=== PATIENT | female | born 1985 | race Caucasian/White ===

== ENCOUNTER 2016-11-04 16:51 | Emergency (ER) | payer OTHER ==
--- NOTE | 2016-11-04 17:18 | EDPHY ---
H & P Stated Complaint: Chest tightness billie w/breathing>1 mo;neg eval [place] was living Time Seen by Provider: 11/04/16 17:17 HPI/ROS: CHIEF COMPLAINT: Intermittent chest pain HISTORY OF PRESENT ILLNESS: The patient presents to the ED with a 1 month history of intermittent chest pain. The patient states she primarily experiences symptoms at night. It is associated with dyspnea and mild pleurisy. Patient reportedly developed the symptoms while traveling in [place]. She reportedly was seen at a hospital and had a unremarkable echocardiogram and EKG. The patient does not believe she had any imaging for chest. The patient denies asymmetric calf pain or swelling. The patient has not yet seen her primary care provider in [place] for evaluation of the symptoms. The patient states that she continues to experience symptoms on a daily basis. She does report resolution of her symptoms during the day. The patient denies prior history of the symptoms. She has no complaints of cough or congestion. REVIEW OF SYSTEMS: A comprehensive 10 point review of systems is otherwise negative aside from elements mentioned in the history of present illness. Source: Patient - Personal History LMP (Females 10-55): 15-21 Days Ago Current Tetanus Diphtheria and Acellular Pertussis (TDAP): Yes - Medical/Surgical History Hx Asthma: No Hx Chronic Respiratory Disease: No Hx Diabetes: No Hx Cardiac Disease: No Hx Renal Disease: No Hx Cirrhosis: No Hx Alcoholism: No Hx HIV/AIDS: No Hx Splenectomy or Spleen Trauma: No Other PMH: Oophorectomy, epilepsy, surgical ASD closure - Social History Smoking Status: Never smoked - Physical Exam Exam: General Appearance: Alert, no distress Eyes: Pupils equal and round no pallor or injection ENT, Mouth: Mucous membranes moist Respiratory: There are no retractions, lungs are clear to auscultation Cardiovascular: Regular rate and rhythm Gastrointestinal: Abdomen is soft and nontender, no masses, bowel sounds normal Neurological: A&O, normal motor function, normal sensory exam, normal cranial nerves Skin: Warm and dry, no rashes Musculoskeletal: Neck is supple nontender Extremities: symmetrical, full range of motion Constitutional: Initial Vital Signs Temperature (C) 36.8 C 11/04/16 16:54 Heart Rate 76 11/04/16 16:54 Respiratory Rate 18 11/04/16 16:54 Blood Pressure 107/74 11/04/16 16:54 O2 Sat (%) 97 11/04/16 16:54 O2 Delivery Mode Room Air Allergies/Adverse Reactions: Sulfa (Sulfonamide Antibiotics) Allergy (Verified 11/04/16 16:52) Rash FLU VACCINE Allergy (Uncoded 05/14/15 15:31) Medical Decision Making - Diagnostics EKG Interpretation: EKG: Complete interpretation has been separately recorded in the [facility] archive. Summary impression: Sinus rhythm Imaging Results: Chest x-ray PA lateral: Images reviewed by myself, negative for pneumothorax, infiltrate or cardiomegaly. Patient does have evidence of an ASD closure device. ED Course/Re-evaluation: The patient presents to the ED with a 1 month history of intermittent chest pain. The patient describes primarily nocturnal symptoms with associated dyspnea. The patient has no complaints of asymmetric calf pain or swelling. The patient's D-dimer is negative which I feel adequately excludes pulmonary embolism in this low risk by Wells criteria patient. The patient is noted to have an unremarkable EKG, test troponin. Patient's vital signs are stable. She does have evidence of ASD closure device on her chest x-ray otherwise no acute findings. Differential Diagnosis: Differential diagnosis considered includes pneumothorax, pulmonary embolism, arrhythmia, myocarditis, pericarditis, pleurisy - Data Points Laboratory Results: Laboratory Results 11/04/16 17:40 11/04/16 17:40 11/04/16 11/04/16 11/04/16 17:40 17:40 17:40 WBC 6.76 10^3/uL 10^3/uL (3.80-9.50) RBC 4.38 10^6/uL 10^6/uL (4.18-5.33) Hgb 13.7 g/dL g/dL (12.6-16.3) Hct 39.3 % % (38.0-47.0) MCV 89.7 fL fL (81.5-99.8) MCH 31.3 pg pg (27.9-34.1) MCHC 34.9 g/dL g/dL (32.4-36.7) RDW 11.7 % % (11.5-15.2) Plt Count 224 10^3/uL 10^3/uL (150-400) MPV 9.7 fL fL (8.7-11.7) Neut % (Auto) 60.1 % % (39.3-74.2) Lymph % (Auto) 31.5 % % (15.0-45.0) [place] % (Auto) 7.0 % % (4.5-13.0) Eos % (Auto) 0.9 % % (0.6-7.6) Baso % (Auto) 0.4 % % (0.3-1.7) Nucleat RBC Rel Count 0.0 % % (0.0-0.2) Absolute Neuts (auto) 4.06 10^3/uL 10^3/uL (1.70-6.50) Absolute Lymphs (auto) 2.13 10^3/uL 10^3/uL (1.00-3.00) Absolute Monos (auto) 0.47 10^3/uL 10^3/uL (0.30-0.80) Absolute Eos (auto) 0.06 10^3/uL 10^3/uL (0.03-0.40) Absolute Basos (auto) 0.03 10^3/uL 10^3/uL (0.02-0.10) Absolute Nucleated RBC 0.00 10^3/uL 10^3/uL (0-0.01) Immature Gran % 0.1 % % (0.0-1.1) Immature Gran # 0.01 10^3/uL 10^3/uL (0.00-0.10) D-Dimer < 0.27 ug/mLFEU ug/mLFEU (0.00-0.50) Sodium 139 mEq/L mEq/L (134-144) Potassium 3.8 mEq/L mEq/L (3.5-5.2) Chloride 102 mEq/L mEq/L (97-110) Carbon Dioxide 24 mEq/l mEq/l (22-31) Anion Gap 13 mEq/L mEq/L (8-16) BUN 6 mg/dL L mg/dL (7-23) Creatinine 0.5 mg/dL L mg/dL (0.6-1.0) Estimated GFR > 60 Glucose 95 mg/dL mg/dL (70-100) Calcium 9.7 mg/dL mg/dL (8.5-10.4) Troponin I < 0.012 ng/mL ng/mL (0.000-0.034) Departure - Departure Disposition: Home, Routine, Self-Care Clinical Impression: Dyspnea, Pleurisy Condition: Good Instructions: Pleurisy (ED) Additional Instructions: 1. Take Ibuprofen or Motrin 600 mg by mouth three times a day. 2. Please schedule a follow-up appointment with your primary care provider for evaluation of any ongoing symptoms. 3. Please return to the ED for markedly worsening symptoms or other concerns. 4. You have also been given the contact number of our on-call pull up hand for additional follow-up for persistent symptoms. Referrals: Sabrina Lin MD [Medical Doctor] - As per Instructions
--- NOTE | 2016-11-04 17:25 | CPEKG ---
Heart Rate: 70 RR Interval: 857 P-R Interval: 140 QRSD Interval: 84 QT Interval: 372 QTC Interval: 402 P Ranger: 48 QRS Ranger: 26 T Wave Ranger: 34 EKG Severity - BORDERLINE ECG - EKG Impression: SINUS RHYTHM Electronically Signed By: Anatoly Sidhu 04-Nov-2016 19:30:12
[2016-11-04 17:54] LABS: % IMMATURE GRANULYOCYTES 0.1 % (0.0-1.1); ABSOLUTE IMMATURE GRANULOCYTES 0.01 10^3/uL (0.00-0.10); ADD DIFF? NO; ADD MORPH? NO; ADD SCAN? NO; ATYPICAL LYMPHOCYTE FLAG 10 (0-99); FRAGMENT RBC FLAG 0 (0-99); HEMATOCRIT 39.3 % (38.0-47.0); HEMOGLOBIN 13.7 g/dL (12.6-16.3); LEFT SHIFT FLG 0 (0-99); LIPEMIA HEMOLYSIS FLAG 90 (0-99); MEAN CELL HEMOGLOBIN 31.3 pg (27.9-34.1); MEAN CELL HEMOGLOBIN CONCENTR. 34.9 g/dL (32.4-36.7); MEAN CELL VOLUME 89.7 fL (81.5-99.8); MEAN PLATELET VOLUME 9.7 fL (8.7-11.7); PLATELET CLUMPS FLAG 20 (0-99); PLATELET COUNT 224 10^3/uL (150-400); RED BLOOD CELL COUNT 4.38 10^6/uL (4.18-5.33); RED CELL DISTRIBUTION WIDTH 11.7 % (11.5-15.2)
[2016-11-04 18:02] LABS: ANION GAP 13 mEq/L (8-16); CALCIUM 9.7 mg/dL (8.5-10.4); CARBON DIOXIDE 24 mEq/l (22-31); CHLORIDE 102 mEq/L (97-110); CREATININE 0.5 mg/dL (0.6-1.0); GLOMERULAR FILTRATION RATE > 60; GLUCOSE 95 mg/dL (70-100); POTASSIUM 3.8 mEq/L (3.5-5.2); SODIUM 139 mEq/L (134-144)
[2016-11-04 18:14] LABS: TROPONIN I < 0.012 ng/mL (0.000-0.034)
[2016-11-04 19:11] VITALS: BP 103/48; PULSE 89; RESP 14; TEMP 99; O2SAT 98
== END 2016-11-04 19:12 | disposition home or self-care (01) ==
DX: R09.1 Pleurisy (principal)

== ENCOUNTER 2017-03-02 09:31 | Emergency (ER) | payer OTHER ==
[2017-03-02] MEDS ORDERED: NS 1,000 ML IV ONE (10:39)
--- NOTE | 2017-03-02 10:44 | EDPHY ---
H & P Smoking Status: Never smoked Time Seen by Provider: 03/02/17 10:27 HPI/ROS: CHIEF COMPLAINT: Blood in stool, abdominal pain HISTORY OF PRESENT ILLNESS: 31-year-old female presents to the emergency department by private vehicle complaining of blood in her stool an right-sided abdominal pain. The patient states that she saw her primary care provider yesterday and was diagnosed with a sinus infection. She was prescribed Zithromax. This is the 1st time she has ever taken this medication. She started it yesterday and then shortly after taking the medication, she developed blood in her stool. She states it was more watery in nature. She had no other episodes of diarrhea yesterday. She took her 2nd dose today and then developed the same blood in her stool. She states it is more watery diarrhea with "strings of bright red blood ". She has some right-sided abdominal pain. She denies chest pain or difficulty breathing. Denies back pain. Denies urinary symptoms. No fevers or chills. No history of this in the past. She does have a history of frequent sinusitis typically about once a year. She was feeling lightheaded and dizzy today. REVIEW OF SYSTEMS: Constitutional: No fever, no chills. Eyes: No double or blurry vision. ENT: No sore throat. Respiratory: No cough, no shortness of breath. Cardiac: No chest pain. Gastrointestinal: As above. No vomiting. Genitourinary: No dysuria. Musculoskeletal: No neck or back pain. Skin: No rashes. Neurological: No headache. (Rochelle,Keisha M) Past Medical/Surgical History: Right oophorectomy, epilepsy, ASD closure (Rochelle,Keisha M) Social History: and lives in [place] (Rochelle,Keisha M) Physical Exam: General Appearance: Alert, no distress. Afebrile. No apparent distress. Eyes: Pupils equal and round. Extraocular motions are all intact. ENT: Mouth: Mucous membranes moist. Tenderness with palpation over bilateral maxillary sinus as well as frontal sinuses worse on the left side. Respiratory: No wheezing, rhonchi, or rales, lungs are clear to auscultation. Cardiovascular: Regular rate and rhythm. Gastrointestinal: Abdomen is soft. Tenderness with palpation especially in the right upper and lower quadrant. There is no rebound, guarding or masses noted. No CVA tenderness bilaterally. Neurological: Alert and oriented x 3, cranial nerves II through XII grossly intact Skin: Warm and dry, no rashes. Musculoskeletal: Nontender to palpate along the cervical, thoracic or lumbar spine. Neck is supple. Extremities: Full range of motion and no peripheral edema. Psychiatric: Patient is oriented X 3, there is no agitation. (Keisha Byrd) Constitutional: Initial Vital Signs Temperature (C) 36.7 C 03/02/17 09:37 Heart Rate 87 03/02/17 09:37 Respiratory Rate 18 03/02/17 09:37 Blood Pressure 122/81 H 03/02/17 09:37 O2 Sat (%) 98 03/02/17 09:37 O2 Delivery Mode Room Air Allergies/Adverse Reactions: Sulfa (Sulfonamide Antibiotics) Allergy (Verified 03/02/17 09:35) Rash FLU VACCINE Allergy (Uncoded 05/14/15 15:31) Home Medications: Medication Instructions Recorded AMOXICILLIN TRIHYDRATE [Amoxil] 875 mg PO BID #20 tablet 03/02/17 AZITHROMYCIN 03/02/17 Fluconazole [Diflucan (*)] 150 mg PO ONCE #2 tab 03/02/17 Trileptal 03/02/17 Medical Decision Making ED Course/Re-evaluation: 31-year-old female presents to the emergency department with concerns about blood in her stool. The patient was able to provide a stool specimen which was guaiac negative. Patient is concerned that her symptoms are related to the Zithromax that was prescribed for her sinus infection. I recommended that she stop the Zithromax. She was given amoxicillin. She was also given prescription for Diflucan per her request. The patient received IV normal saline. Her abdomen was soft and benign. She is comfortable being discharged home. I did explain that if she developed recurring what she thought was blood in her stool, she should return to the emergency department for evaluation. Patient verbalized understanding and agreed. (Keisha Byrd) Differential Diagnosis: Including but not limited to colitis, adverse medication reaction, acute appendicitis, Crohn's disease, ulcerative colitis, infectious diarrhea, Clostridium difficile (Keisha Byrd) Other Provider: The patient was evaluated and managed by the Physician Submarine Element Coordinator. My co- signature indicates that I have reviewed this chart and I agree with the findings and plan of care as documented. I am the secondary supervising physician. (Meggan Aragon) - Data Points Laboratory Results: Laboratory Results 03/02/17 10:55 03/02/17 10:55 Medications Given: Discontinued Medications Sodium Chloride (Ns) 1,000 mls @ 0 mls/hr IV ONCE ONE PRN Reason: Wide Open Stop: 03/02/17 10:40 Last Admin: 03/02/17 11:05 Dose: 1,000 mls Departure - Departure Disposition: Home, Routine, Self-Care Clinical Impression: Abdominal pain, Sinusitis Condition: Good Instructions: Sinusitis (ED), Acute Diarrhea (ED), Acute Abdominal Pain (ED) Additional Instructions: Stop the Zithromax that was prescribed. Amoxicillin 875 mg twice daily for 10 days. Abdominal Pain: Return to the Emergency Department immediately for increasing pain, fever, vomiting, or if not completely better in 8-12 hours. You had no blood in your stool today. Referrals: Ivon Araiza MD [Primary Care Provider] - As per Instructions Stand Alone Forms: Work Excuse Prescriptions: AMOXICILLIN TRIHYDRATE [Amoxil] 875 mg PO BID #20 tablet Fluconazole [Diflucan (*)] 150 mg PO ONCE #2 tab
[2017-03-02 11:05] LABS: % IMMATURE GRANULYOCYTES 0.4 % (0.0-1.1); ABSOLUTE IMMATURE GRANULOCYTES 0.02 10^3/uL (0.00-0.10); ADD DIFF? NO; ADD MORPH? NO; ADD SCAN? NO; ATYPICAL LYMPHOCYTE FLAG 0 (0-99); FRAGMENT RBC FLAG 0 (0-99); HEMATOCRIT 41.4 % (38.0-47.0); HEMOGLOBIN 14.3 g/dL (12.6-16.3); LEFT SHIFT FLG 0 (0-99); LIPEMIA HEMOLYSIS FLAG 90 (0-99); MEAN CELL HEMOGLOBIN 31.6 pg (27.9-34.1); MEAN CELL HEMOGLOBIN CONCENTR. 34.5 g/dL (32.4-36.7); MEAN CELL VOLUME 91.6 fL (81.5-99.8); MEAN PLATELET VOLUME 9.5 fL (8.7-11.7); PLATELET CLUMPS FLAG 0 (0-99); PLATELET COUNT 238 10^3/uL (150-400); RED BLOOD CELL COUNT 4.52 10^6/uL (4.18-5.33); RED CELL DISTRIBUTION WIDTH 11.9 % (11.5-15.2)
[2017-03-02 11:41] LABS: ANION GAP 14 mEq/L (8-16); CALCIUM 9.7 mg/dL (8.5-10.4); CARBON DIOXIDE 23 mEq/l (22-31); CHLORIDE 106 mEq/L (97-110); CREATININE 0.6 mg/dL (0.6-1.0); GLOMERULAR FILTRATION RATE > 60; GLUCOSE 78 mg/dL (70-100); POTASSIUM 4.5 mEq/L (3.5-5.2); SODIUM 143 mEq/L (134-144)
[2017-03-02 12:19] VITALS: BP 128/78; PULSE 76; RESP 16; TEMP 97.7; O2SAT 97
== END 2017-03-02 12:35 | disposition home or self-care (01) ==
DX: R10.11 Right upper quadrant pain (principal); R10.31 Right lower quadrant pain; J32.9 Chronic sinusitis, unspecified; R19.7 Diarrhea, unspecified

== ENCOUNTER 2017-06-08 13:52 | Emergency (ER) | payer OTHER ==
--- NOTE | 2017-06-08 15:41 | EDPHY ---
H & P Stated Complaint: 1 week sinus pain/corrales pressure/rx amox/and r sided blurred vision Time Seen by Provider: 06/08/17 15:03 HPI/ROS: CHIEF COMPLAINT: Right retro-orbital headache, blurry vision right eye HISTORY OF PRESENT ILLNESS: The patient presents the ED with a one-week history of a right retro-orbital headache and blurry vision in the right eye. The patient reportedly was treated for a sinus infection with amoxicillin without significant improved. The patient does have a history of migraines and reportedly has been using her regular migraine medications with an increasing frequency. She denies any fever or neck pain. REVIEW OF SYSTEMS: A comprehensive 10 point review of systems is otherwise negative aside from elements mentioned in the history of present illness. Source: Patient - Personal History LMP (Females 10-55): 8-14 Days Ago Current Tetanus/Diphtheria Vaccine: Yes - Medical/Surgical History Hx Asthma: No Hx Chronic Respiratory Disease: No Hx Diabetes: No Hx Cardiac Disease: No Hx Renal Disease: No Hx Cirrhosis: No Hx Alcoholism: No Hx HIV/AIDS: No Hx Splenectomy or Spleen Trauma: No Other PMH: Oophorectomy, epilepsy, surgical ASD closure - Social History Smoking Status: Never smoked - Physical Exam Exam: General Appearance: Alert, no distress Eyes: Pupils equal and round no pallor or injection ENT, Mouth: Mucous membranes moist Respiratory: There are no retractions, lungs are clear to auscultation Cardiovascular: Regular rate and rhythm Gastrointestinal: Abdomen is soft and nontender, no masses, bowel sounds normal Neurological: A&O, normal motor function, normal sensory exam, normal cranial nerves Skin: Warm and dry, no rashes Musculoskeletal: Neck is supple nontender Extremities: symmetrical, full range of motion Constitutional: Initial Vital Signs Temperature (C) 36.6 C 06/08/17 13:59 Heart Rate 86 06/08/17 13:59 Respiratory Rate 16 06/08/17 13:59 Blood Pressure 115/66 06/08/17 13:59 O2 Sat (%) 99 06/08/17 13:59 O2 Delivery Mode Room Air Allergies/Adverse Reactions: Sulfa (Sulfonamide Antibiotics) Allergy (Verified 06/08/17 13:58) Rash FLU VACCINE Allergy (Uncoded 05/14/15 15:31) Home Medications: Medication Instructions Recorded AMOXICILLIN TRIHYDRATE [Amoxil] 875 mg PO BID #20 tablet 03/02/17 Trileptal 03/02/17 Medical Decision Making - Diagnostics Imaging Results: Imaging Impressions Brain MRI 06/08/17 15:31 Impression: Normal MRI of the brain without contrast. Results called and discussed with Dr. Anatoly Sidhu at 06/08/2017 17:01. Head MRA 06/08/17 15:31 Impression: No evidence of superior sagittal sinus thrombosis. Results called and discussed with Dr. Anatoly Sidhu at 06/08/2017 17:03. ED Course/Re-evaluation: The patient presents to the ED for evaluation of a right retro-orbital headache and blurry vision in the setting of a reported recent sinus infection. The patient is noted to be neurologically intact. The patient describes a very vague change in her visual acuity involving the right eye. I appreciate no obvious field cut. The patient's visual acuity is 20/25 bilaterally. Given the patient's complaints of headache and blurry vision a MRI of the brain was ordered which demonstrates no evidence of an obvious orbital abscess or demyelinating illness. Venogram demonstrates no evidence of an obvious thrombosis. I did curbside Dr. Francisco J Perez who was happy to see the patient in his office tomorrow for a comprehensive Ophthalmology exam. The patient is advised to return to the ED for markedly worsening symptoms or other concerns. Differential Diagnosis: Differential diagnosis considered includes optic neuritis, orbital cellulitis, abscess, cavernous vein thrombosis - Data Points Laboratory Results: Laboratory Results 06/08/17 15:30 06/08/17 15:30 06/08/17 06/08/17 06/08/17 15:30 15:30 15:30 WBC 5.01 10^3/uL 10^3/uL (3.80-9.50) RBC 4.55 10^6/uL 10^6/uL (4.18-5.33) Hgb 14.5 g/dL g/dL (12.6-16.3) Hct 41.0 % % (38.0-47.0) MCV 90.1 fL fL (81.5-99.8) MCH 31.9 pg pg (27.9-34.1) MCHC 35.4 g/dL g/dL (32.4-36.7) RDW 11.8 % % (11.5-15.2) Plt Count 255 10^3/uL 10^3/uL (150-400) MPV 9.8 fL fL (8.7-11.7) Neut % (Auto) 47.3 % % (39.3-74.2) Lymph % (Auto) 40.7 % % (15.0-45.0) [place] % (Auto) 9.0 % % (4.5-13.0) Eos % (Auto) 2.0 % % (0.6-7.6) Baso % (Auto) 0.8 % % (0.3-1.7) Nucleat RBC Rel Count 0.0 % % (0.0-0.2) Absolute Neuts (auto) 2.37 10^3/uL 10^3/uL (1.70-6.50) Absolute Lymphs (auto) 2.04 10^3/uL 10^3/uL (1.00-3.00) Absolute Monos (auto) 0.45 10^3/uL 10^3/uL (0.30-0.80) Absolute Eos (auto) 0.10 10^3/uL 10^3/uL (0.03-0.40) Absolute Basos (auto) 0.04 10^3/uL 10^3/uL (0.02-0.10) Absolute Nucleated RBC 0.00 10^3/uL 10^3/uL (0-0.01) Immature Gran % 0.2 % % (0.0-1.1) Immature Gran # 0.01 10^3/uL 10^3/uL (0.00-0.10) Sodium 136 mEq/L mEq/L (135-145) Potassium 4.2 mEq/L mEq/L (3.5-5.2) Chloride 101 mEq/L mEq/L (97-110) Carbon Dioxide 24 mEq/l mEq/l (22-31) Anion Gap 11 mEq/L mEq/L (8-16) BUN 8 mg/dL mg/dL (7-23) Creatinine 0.5 mg/dL L mg/dL (0.6-1.0) Estimated GFR > 60 Glucose 80 mg/dL mg/dL (70-100) Calcium 9.4 mg/dL mg/dL (8.5-10.4) Beta HCG, Qual NEGATIVE Departure - Departure Disposition: Clinical Impression: Blurry vision, right eye Condition: Good Instructions: Blurred Vision (ED) Additional Instructions: 1. Please contact the tool maker apprentice, Dr. Francisco J Perez, for further evaluation. 2. Your brain MRI demonstrates no evidence of obvious abscess, tumor, stroke or multiple sclerosis. 3. Your laboratory studies are within normal limits. 4. Please contact your neurologist to schedule a follow-up visit Referrals: Francisco J Perez MD [Medical Doctor] - As per Instructions
[2017-06-08 16:27] LABS: PLATELET COUNT 255 10^3/uL (150-400)
[2017-06-08 16:40] VITALS: RESP 18
[2017-06-08 17:47] VITALS: BP 116/63; PULSE 66; TEMP 98.2; O2SAT 92
== END 2017-06-08 17:47 | disposition home or self-care (01) ==
DX: H53.8 Other visual disturbances (principal)